=== PATIENT | male | born 1955 | race Caucasian/White ===

== ENCOUNTER 2018-09-26 08:19 | Outpatient (CLI) | payer BC ==
--- NOTE | 2018-09-27 17:21 | MRI ---
MR OF THE RIGHT KNEE WITHOUT CONTRAST: 09/27/18 INDICATION: Concern for lateral meniscal tear. FINDINGS: There is a horizontally oriented oblique undersurface tear involving the body and posterior junction of the lateral meniscus with a displaced meniscal flap measuring 9 mm seen within the inferior aspect of the lateral meniscal gutter. The medial meniscus is partially extruded; however, there is no evid ence to suggest a discrete tear. 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 There is a moderat e area of moderate chondrosis involving the medial femoral condyle spanning approximately 1.8 x 2.8 c m. This causes 50% narrowing within this region of chondrosis. The ACL, PCL, MCL and LCLC are intact. The extensor mechanism is intact. There is a larger semimembranosus/medial gastrocnemius popliteal cyst that extends cephalad, superior and medial to the semimembranosus musculotedinous junction. There is fluid extension seen extending from the level of the cyst to just anterior to the distal aspect of the semimembranosus muscle and ma y reflect sequela of a partial Cramer's cyst rupture. IT band and popliteus appear within normal limit s. Articular cartilage and patellofemoral compartment appears well preserved. IMPRESSION: 1. Horizontally oriented oblique tear involving the body and posterior junction of the lateral m eniscus with displaced meniscal flap projecting into the inferior aspect of the lateral gutter. 2. 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 3. Partial extrusion of the medial meniscus without evidence of discrete tear. 4. Large suspected Cramer's cyst extending cephalad and posterior to the semimembranosus muscle b sudarshan with findings suspicious for partial rupture. There is suspected fluid extension to just anterio r to the musculotendinous junction of the semimembranosus muscle. This is incompletely visualized on the current exam. Recommend correlation with the clinical exam. POS: [facility]
== END 2018-09-26 08:20 | disposition home or self-care (01) ==
LOC: MRI 08:19
PROVIDERS: ATTEND Orthopaedic Surgery
DX: M25.561 Pain in right knee (principal); S83.281A Other tear of lateral meniscus, current injury, right knee, initial encounter